=== PATIENT | female | born 1995 | race Caucasian/White ===

== ENCOUNTER 2019-10-09 13:13 | Emergency (ER) | payer OTHER ==
[~2019-10-09] VITALS: Ht 157.5 cm; Wt 59.0 kg
[~2019-10-09 13:13] MED LIST: MOBIC7.5 MG PO; PERCOCET 5-3251 EACH PO
[2019-10-09 15:48] LABS: URINE BILIRUBIN NEGATIVE (Negative); URINE BLOOD 1+ (Negative); URINE CLARITY SL CLOUDY; URINE COLOR YELLOW; URINE GLUCOSE-RANDOM* NEGATIVE (Negative); URINE KETONES 2+ (Negative); URINE LEUKOCYTES-REFLEX NEGATIVE (Negative); URINE NITRITE-REFLEX NEGATIVE (Negative); URINE PROTEIN (DIPSTICK) TRACE (Negative); URINE SPECIFIC GRAVITY >= 1.030 (1.005-1.035); URINE UROBILINOGEN 0.2 E.U./dl (0.2-1.0)
[2019-10-09 16:07] LABS: SQUAMOUS >10 Many /LPF (0-3)
[2019-10-09 16:08] LABS: CASTS None Seen /LPF (None Seen); CRYSTALS None Seen /LPF (None Seen); URINE WBC-REFLEX 0-5 Rare /HPF (0-5)
[2019-10-09 16:09] LABS: BACTERIA-REFLEX 1-9 Few /HPF (None Seen); MUCUS 0-3 Light strn/LPF (None Seen)
[2019-10-09 16:15] LABS: ABSOLUTE NEUTROPHILS 4.9 thou/uL (1.4-8.2); BASOPHILS 0.4 % (0.0-2.0); HEMATOCRIT 37.4 % (37.0-47.0); HEMOGLOBIN 12.6 gm/dL (12.0-15.0); LYMPHOCYTES 2.4 % (24.0-44.0); MCH 28.4 pg (26.0-34.0); MCHC 33.7 g/dL (28.0-37.0); MCV 84.3 fL (80.0-100.0); MONOCYTES 11.4 % (1.0-8.0); PLATELET COUNT 264 thou/uL (150-400); POLYS 85.8 % (36.0-66.0); RBC 4.43 mil/uL (4.20-5.00); WBC 5.7 thou/uL (4.0-11.0)
[2019-10-09 16:27] LABS: CREATININE 0.9 mg/dL (0.6-1.0); POTASSIUM 3.3 mmol/L (3.5-5.1)
[2019-10-09 16:32] LABS: TOTAL BILIRUBIN 0.3 mg/dL (<0.1-1.0); TOTAL PROTEIN 8.2 g/dL (6.4-8.2)
[2019-10-09] MEDS ORDERED: ZOFRAN ODT4 MG PO (17:07)
[2019-10-09 18:38] VITALS: BP 119/50
== END 2019-10-09 18:50 | disposition home or self-care (01) ==
LOC: ER 13:13
PROVIDERS: Nurse Practitioner Family
DX: B34.9 Viral infection, unspecified (principal); R11.2 Nausea with vomiting, unspecified

== ENCOUNTER 2020-02-22 18:30 | Emergency (ER) | payer OTHER ==
[~2020-02-22] VITALS: Ht 157.5 cm; Wt 68.0 kg
--- NOTE | ~2020-02-22 | EMS ---
[address] [address] EMS Patient Care Report Name: LAURA HOLBROOK Room #: DEP ELIZABETH Torres#: [id number] Admission: 02/22/20 Attend Phys: Discharge: 02/22/20 Date of : [birth year] Report #: [id number] THIS REPORT FOR: //name// Report Transmitted: 02/22/2020 18:36 EMS Care Summary [place], [place]/[facility] Incident [id number] @ 02/22/2020 17:41 Incident Location [address] [place] [address] Patient LAURA HOLBROOK Female, 24 Years 1995 Patient Address [address] [place] [address] Patient History None Reported, Patient Allergies No known allergies, Patient Medications None Reported, Chief Complaint Possible suicidal ideations Disposition Transported No Lights/Debord Dispatch Reason Overdose/Poisoning/Ingestion Transported To [facility] Narrative AOS to find the pt standing in her living room with [employer] present. The pt was handcuffed and she was extremely upset, the pt was yelling at her sister and [address] [address] EMS Patient Care Report Name: LAURA HOLBROOK Room #: DEP Kimber.#: [id number] Admission: 02/22/20 Attend Phys: Discharge: 02/22/20 Date of : [birth year] Report #: [id number] [employer]. The pt allegedly send a text message to somebody stating she wanted to kill herself, [employer] stated she made 3 suicidal comments in their interactions with her as well. The pt stated to Medic 42 that she did send a message stating she wanted to harm herself but she would not give specifics.. The pt was transported to [facility] where care was transferred to RN. Initial Vitals @18:10P: 135,SpO2: 80, @18:12P: 129,R: 20,BP: 143/55,Pain: 0/10,GCS: 15,SpO2: 94,Revised Trauma: 12, Assessments @17:59MENTAL:Person Oriented,Time Oriented,Place Oriented,Event Oriented,SKIN:HEENT:Head/Face: No Abnormalities,Neck/Airway: No Abnormalities,LUNG SOUNDS:ABDOMEN:PELVIS//GI:EXTREMITIES:Capillary Refill: Left Upper: < 2 Sec,Capillary Refill: Right Upper: < 2 Sec,Left Leg: No Abnormalities,Right Leg: No Abnormalities,PULSE:Radial: 2+ Normal,NEURO:No Abnormalities, Impression Behavioral/psychiatric episode Timeline 17:41,Call Received 17:41,Dispatch Notified 17:41,Dispatched 17:42,En Route 17:56,On Scene 17:59,At Patient 18:10,BP: / M,PULSE: 135,RR: R,SPO2: 80 Ox,ETCO2: ,BG: ,PAIN: ,GCS: , 18:12,BP: 143/55 M,PULSE: 129,RR: 20 R,SPO2: 94 Ox,ETCO2: ,BG: ,PAIN: 0,GCS: 15, 18:18,Depart Scene 18:25,At Destination 18:40,Call Closed Disclaimer v1.1 Copyright 2020 [employer] This EMS Care Summary contains data elements from the applicable legal record (which may be displayed differently). It is designed to provide pertinent information for the following purposes: continuity of care, clinical quality, and state data reporting. The complete legal record is available to ED staff and administrators of the receiving hospital in [employer] Patient Tracker. All data is provided "as is."
[~2020-02-22 18:30] MED LIST changes: +ZOFRAN ODT4 MG PO
[2020-02-22] MEDS ORDERED: DEPO-PROVE150 MG/1 M IM (18:35)
[2020-02-22 19:31] VITALS: BP 130/81
== END 2020-02-22 19:31 | disposition home or self-care (01) ==
LOC: ER 18:30
DX: F43.20 Adjustment disorder, unspecified (principal); Z79.899 Other long term (current) drug therapy